=== PATIENT | female | born 1965 | race Two or more races ===

== ENCOUNTER 2017-05-15 09:23 | Outpatient (CLI) | payer OTHER ==
[~2017-05-15 09:23] MED LIST: ALLEGRA ALLERGY60 MG; MEDROLPACK PO; PAXIL10 MG/5 ML
== END 2017-05-15 09:31 | disposition home or self-care (01) ==
LOC: RAD 09:23
DX: J32.8 Other chronic sinusitis (principal)

== ENCOUNTER 2017-05-22 12:06 | Outpatient (CLI) | payer OTHER | END 2017-05-22 12:13 | disposition home or self-care (01) | LOC: RAD 12:06 | DX: M54.2 Cervicalgia (principal); M54.6 Pain in thoracic spine; M54.5 Low back pain; M06.4 Inflammatory polyarthropathy ==

== ENCOUNTER → 2017-06-16 | Outpatient (CLI) | payer OTHER ==
[~2017-06-16] MED LIST changes: +PAXIL CR25 MG PO
== END | disposition home or self-care (01) ==
LOC: PPHC 17:22
DX: R05 Cough (principal)

== ENCOUNTER 2017-11-08 09:16 | Outpatient (CLI) | payer OTHER | END 2017-11-08 15:30 | disposition home or self-care (01) | LOC: MRI 09:16 | DX: R41.3 Other amnesia (principal); D49.6 Neoplasm of unspecified behavior of brain; G40.909 Epilepsy, unspecified, not intractable, without status epilepticus | CPT/HCPCS: 70553 ==

== ENCOUNTER 2018-01-14 10:05 | Outpatient (CLI) | payer OTHER | END 2018-01-14 10:47 | disposition home or self-care (01) | LOC: MRI 10:05 | DX: M50.20 Other cervical disc displacement, unspecified cervical region (principal); M50.30 Other cervical disc degeneration, unspecified cervical region | CPT/HCPCS: 72141 ==

== ENCOUNTER 2018-10-17 10:46 | Outpatient (CLI) | payer OTHER | END 2018-10-17 11:24 | disposition home or self-care (01) | LOC: RAD 10:46 | DX: M54.5 Low back pain (principal); M54.16 Radiculopathy, lumbar region ==

== ENCOUNTER 2018-11-24 14:07 | Emergency (ER) | payer OTHER ==
[~2018-11-24] VITALS: Ht 154.9 cm; Wt 65.8 kg
[2018-11-24] MEDS ORDERED: VOLTAREN-XR100 MG PO (18:56)
== END 2018-11-24 19:15 | disposition home or self-care (01) ==
LOC: ER 14:07
DX: K52.9 Noninfective gastroenteritis and colitis, unspecified (principal)

== ENCOUNTER 2019-01-23 14:15 | Outpatient (CLI) | payer OTHER ==
[~2019-01-23 14:15] MED LIST changes: +VOLTAREN-XR100 MG PO
== END 2019-01-23 14:43 | disposition home or self-care (01) ==
LOC: MAMO-SONO 14:15
DX: Z12.31 Encounter for screening mammogram for malignant neoplasm of breast (principal); Z87.898 Personal history of other specified conditions

== ENCOUNTER 2020-07-12 08:06 | Outpatient (CLI) | payer OTHER | END 2020-07-12 14:34 | disposition home or self-care (01) | LOC: LAB 08:06 | DX: Z03.818 Encounter for observation for suspected exposure to other biological agents ruled out (principal) ==

== ENCOUNTER 2021-01-24 10:00 | Outpatient (CLI) | payer OTHER | END 2021-01-24 10:15 | disposition home or self-care (01) | LOC: PPH VACUNA 10:00 | PROVIDERS: ATTEND Emergency Medicine Pediatric Emergency Medicine | DX: Z23 Encounter for immunization (principal) ==

== ENCOUNTER 2021-08-05 12:03 | Emergency (ER) | payer OTHER ==
[~2021-08-05] VITALS: Ht 154.9 cm; Wt 63.5 kg
[2021-08-05] MEDS ORDERED: GABAPENTIN800 M1 PO (12:43)
[2021-08-05] MEDS ORDERED: CLONAZEPAM0.5 MG PO (12:43)
[2021-08-05] MEDS ORDERED: CYMBALTA60 MG PO (12:43)
== END 2021-08-05 13:10 | disposition home or self-care (01) ==
LOC: ER 12:03
DX: S51.011A Laceration without foreign body of right elbow, initial encounter (principal); W18.30XA Fall on same level, unspecified, initial encounter; Y93.9 Activity, unspecified; Y92.9 Unspecified place or not applicable; Y99.9 Unspecified external cause status; Z88.6 Allergy status to analgesic agent

== ENCOUNTER 2021-08-07 08:00 | Outpatient (CLI) | payer OTHER ==
[~2021-08-07 08:00] MED LIST changes: +CLONAZEPAM0.5 MG PO; +CYMBALTA60 MG PO; +GABAPENTIN800 M1 PO
== END 2021-08-07 08:30 | disposition home or self-care (01) ==
LOC: PPH VACUNA 08:00
PROVIDERS: ATTEND Emergency Medicine Pediatric Emergency Medicine
DX: Z23 Encounter for immunization (principal)

== ENCOUNTER 2021-12-29 09:10 | Outpatient (CLI) | payer OTHER | END 2021-12-29 09:20 | disposition home or self-care (01) | LOC: PPH VACUNA 09:10 | PROVIDERS: ATTEND Emergency Medicine Pediatric Emergency Medicine | DX: Z23 Encounter for immunization (principal) ==